=== PATIENT | female | born 1985 | race Caucasian/White ===

== ENCOUNTER → 2020-09-16 11:35 | Outpatient (BNVA) | payer OTHER, SELFPAY | PROVIDERS: Visit Provider Obstetrics & Gynecology ==

== ENCOUNTER → 2020-09-20 09:49 | Outpatient (BNVA) | payer OTHER, SELFPAY | PROVIDERS: Visit Provider Obstetrics & Gynecology ==

== ENCOUNTER 2020-10-03 06:06 | Day surgery (SDC) | payer OTHER, SELFPAY ==
--- NOTE | 2020-10-01 09:57 | HO.ANESPROP2 ---
Documented by User: Sun Brown 10/01/20 09:57 HPI - Anesthesia Eval Consult details Narrative: 35yo F for Hysteroscopic IUD Removal & IUD Insertion PMFSH Family History Family History Maternal Grandmother Lung cancer Father HTN (hypertension) Surgical History Surgical History Hx of section Social History Social History Alcohol intake: current Alcohol intake frequency: does not drink Smoking Status: Never smoker Use of substances other than those prescribed or required for medical reasons: No Are you DNR?: No Advance Directives: No Advance Directives Information Provided: Yes Gender identity: female Meds Allergies Allergy/AdvReac Type Severity Reaction Status Date / Time No Known Allergies Allergy Verified 09/20/20 09:56 [No Known Allergies*] Home Medications Medication Instructions Recorded Confirmed Last Taken Type dexmethylphenidate 20 mg 20 mg PO DAILY 09/16/20 Unknown History capsule,extended release [id number] Exam Exam Date and Time: October 01, 2020 0957 Assessment and Plan Assessment Anesthesia Assessment: Chart Reviewed Documented by User: Galen Masters 10/03/20 07:33 PMFSH Family History Family History Maternal Grandmother Lung cancer Father HTN (hypertension) Surgical History Surgical History Hx of section Social History Social History Alcohol intake: current Alcohol intake frequency: does not drink Smoking Status: Never smoker Use of substances other than those prescribed or required for medical reasons: No Are you DNR?: No Advance Directives: No Advance Directives Information Provided: Yes Gender identity: female Meds Allergies Allergy/AdvReac Type Severity Reaction Status Date / Time No Known Allergies Allergy Verified 09/20/20 09:56 [No Known Allergies*] Home Medications Medication Instructions Recorded Confirmed Last Taken Type dexmethylphenidate 20 mg 20 mg PO DAILY 09/16/20 Unknown History capsule,extended release [id number] Exam Airway Mallampati Class: II TM Dist: >3cm Neck ROM: Full
[2020-10-03 06:17] VITALS: BP 104/59; PULSE 63; RESP 16; TEMP 36.2; O2SAT 99; BMI 25.8
[2020-10-03 06:21] LABS: UPreg QC Valid YES; Urine Pregnancy NEGATIVE (NEGATIVE)
--- NOTE | 2020-10-03 07:07 | MHC.SHP ---
Pre-Procedural Eval Section A The patient is an INPATIENT: No Changes since office visit: No Cold of Flu in the past 2 weeks, No New Medical Problems, No Changes in Medication and No Patient answered all questions The History & Physical has been completed within 30 days and I have reviewed it.: Yes Section B Chief Complaint: IUD String Lost Allergies: Allergies Allergy/AdvReac Type Severity Reaction Status Date / Time No Known Allergies Allergy Verified 09/20/20 09:56 [No Known Allergies*] Plan I have reviewed the history and physical and performed a pertinent physical examination on my patient. No changes have occurred unless specified.
--- NOTE | 2020-10-03 07:07 | W.PM.OPN ---
Operative Note Operative Note Date of Service: 10/03/20 Narrative: Pre-Op Diagnoses: IUD strings missing, unwanted fertility Pre-Op Diagnoses: same as pre-op Production Line Solderer: none Procedures performed: hysteroscopic IUD removal, Josefa IUD insertion Josefa S/N [id number], Exp 04/2023, LOT [id number] Specimens: none Complications: none Disposition: PACU Ms. Rai is a 35 year old with missing IUD strings. She presents today for hysteroscopic IUD removal and Josefa insertion after US was done to confirm intrauterine placement and removal was attempted in her usual provider's office without success. Surgical Risks: The patient was informed of the risks and benefits of a hysteroscopy with dilation and curettage. Risks included but were not limited to bleeding, infection, injury to the vulva, vagina, or cervix, and uterine perforation with possible need for further surgery. The patient expressed understanding of the risks involved, all questions were answered, and the patient consented to the procedure. The patient was taken to the operating room where a time out was confirmed to confirm correct patient and correct procedure. Adequate []IV sedation/general anesthesia was established. The patient was then positioned on the operating table in the dorsal lithotomy position with her legs supported using stirrups. All pressure points were padded and a warm blanket was placed to maintain control of core body temperature. The patient was then prepped and draped in the usual sterile fashion. A straight catheter was inserted into the bladder and 100mL of urine was obtained. A bimanual exam was performed and the uterus was found to be approximately 8 cm size, anteverted. No adnexal masses were palpated. A bivalve speculum was then inserted into the vagina. The anterior lip of the cervix was visualized and grasped using a single tooth tenaculum. A cervical block was performed by injecting 6cc 0.5% bupivicaine each at 4 and 7o'clock, after first aspirating to confirm placement not in a blood vessel. The cervix was then adequately dilated using King dilators for the introduction of the hysteroscope. The hysteroscope was introduced under direct visualization using normal saline solution as the distending media. The hysteroscope was advanced and the Mirena IUD visualized. A hysteroscopic grasper was advanced and the IUD grasped. The hysteroscope was then removed with the grasper within the hysteroscope and the IUD in the grasper. The uterus was sounded to 7cm. The Josefa IUD was inserted in routine fashion. The strings were trimmed to 3cm. The tenaculum was removed from the anterior lip of the cervix and good hemostasis was noted. The speculum was removed from the vagina. The patient tolerated the procedure well. The single-tooth tenaculum was removed from the anterior lip of the cervix and hemostasis was also noted at the tenaculum puncture sites. The speculum was then removed from the vagina. At the end of the procedure, all needle, sponge, and instrument counts were noted to be correct x2. The patient was transferred to the recovery room in stable condition.
[2020-10-03 08:05] VITALS: BP 101/52; PULSE 65; RESP 16; TEMP 36.2; O2SAT 100
[2020-10-03 08:19] VITALS: BP 114/69; PULSE 59; RESP 16; TEMP 36.2; O2SAT 100
== END 2020-10-03 08:54 | disposition home or self-care (01) ==
PROVIDERS: Visit Provider Obstetrics & Gynecology
PROC: 0UJD8ZZ Inspection of Uterus and Cervix, Via Natural or Artificial Opening Endoscopic (ICD-10-PCS; CPT 58555; principal; 2020-10-03 07:30)
DX: T83.32XA Displacement of intrauterine contraceptive device, initial encounter (principal); Y76.1 Therapeutic (nonsurgical) and rehabilitative obstetric and gynecological devices associated with adverse incidents; Y92.9 Unspecified place or not applicable
CPT/HCPCS: 58562; 58300; 81025; J1100; J1885; J2250; J2405; J3010

== ENCOUNTER 2021-02-05 12:21 | Outpatient (REF) | payer OTHER, SELFPAY ==
[2021-02-05 13:24] LABS: COVID-19 Test Negative (Negative)
== END 2021-02-05 12:22 | disposition home or self-care (01) ==
LOC: HO.LAB 12:21
PROVIDERS: Visit Provider Internal Medicine
DX: Z20.822 Contact with and (suspected) exposure to COVID-19 (principal)
CPT/HCPCS: 36415; 87635; C9803

== ENCOUNTER 2021-10-03 16:16 | Outpatient (REF) | payer OTHER, SELFPAY ==
[2021-10-03 16:29] LABS: MANUAL DIFF FLAG NO
[2021-10-03 16:47] LABS: Basophils Percent Auto 0.5 % (0-2); Eosinophils Absolute Auto 0.1 X10*3/uL (0.0-0.4); Eosinophils Percent Auto 1.2 % (0-4); Hemoglobin 12.9 g/dl (12.0-16.0); Imm Gran Abs Auto 0.02 X10*3/uL (0.00-0.03); Imm Gran Pct Auto 0.3 % (0.0-0.4); Lymphocytes Absolute Auto 2.4 X10*3/uL (1.2-4.9); Lymphocytes Percent Auto 30.3 % (20-40); Mean Corpuscular HGB Conc 33.9 g/dl (31.0-35.0); Mean Corpuscular Hemoglobin 31.7 pg (27.0-33.0); Mean Corpuscular Volume 93.4 fL (80.0-98.0); Mean Platelet Volume 10.2 fL (9.4-12.3); Monocytes Absolute Auto 0.4 X10*3/uL (0.1-1.2); Monocytes Percent Auto 4.6 % (2-11); Neutrophils Absolute Auto 4.9 x10*3/uL (2.0-8.3); Neutrophils Percent Auto 63.1 % (45-73); Platelet Count 365 X10*3/uL (160-400); Red Blood Count 4.07 X10*6/uL (4.20-5.50); Red Cell Distribution Width 13.3 % (11.0-16.0); White Blood Count 7.8 X10*3/uL (4.8-10.8)
[2021-10-03 17:15] LABS: Alanine Aminotransferase 19 U/L (0-31); Albumin Level 4.1 g/dL (3.5-5.0); Alkaline Phosphatase 59 U/L (39-117); Anion Gap 10 (12-20); Aspartate Amino Transferase 17 U/L (5-31); Bilirubin Total 0.5 mg/dL (0.0-1.0); Blood Urea Nitrogen 10 mg/dL (9-16); Calcium 9.5 mg/dL (8.4-10.2); Carbon Dioxide 26 mmol/L (22-29); Chloride 105 mmol/L (96-108); Estimated Glomerular Filt Rate > 60; Glucose Random 92 mg/dL (60-115); Potassium 4.4 mmol/L (3.3-5.1); Sodium 137 mmol/L (135-145); Total Protein 7.5 g/dL (6.5-8.0)
[2021-10-03 17:36] LABS: Free T4 (Free Thyroxine) 1.09 ng/dL (0.71-1.85); Thyroid Stimulating Hormone 2.16 uIU/mL (0.32-4.0); Vitamin D 25-OH Total 16.6 ng/mL (>30)
[2021-10-03 17:41] LABS: Vitamin B12 377 pg/mL (200-900)
[2021-10-03 17:42] LABS: Estimated Average Glucose 97 mg/dL
== END 2021-10-03 16:17 | disposition home or self-care (01) ==
LOC: HO.LAB 16:16
PROVIDERS: Visit Provider Nurse Practitioner Psychiatric/Mental Health
DX: R53.83 Other fatigue (principal)
CPT/HCPCS: 36415; 80053; 82306; 82607; 83036; 84439; 84443; 85025

== ENCOUNTER 2022-09-03 10:33 | Outpatient (REF) | payer OTHER, SELFPAY ==
[2022-09-03 10:53] LABS: MANUAL DIFF FLAG NO
[2022-09-03 11:29] LABS: Basophils Percent Auto 0.2 % (0-2); Eosinophils Absolute Auto 0.1 X10*3/uL (0.0-0.4); Eosinophils Percent Auto 0.8 % (0-4); Hematocrit 37.9 % (37.0-47.0); Hemoglobin 12.7 g/dl (12.0-16.0); Imm Gran Abs Auto 0.02 X10*3/uL (0.00-0.03); Imm Gran Pct Auto 0.3 % (0.0-0.4); Lymphocytes Absolute Auto 1.6 X10*3/uL (1.2-4.9); Lymphocytes Percent Auto 24.7 % (20-40); Mean Corpuscular HGB Conc 33.5 g/dl (31.0-35.0); Mean Corpuscular Hemoglobin 30.1 pg (27.0-33.0); Mean Corpuscular Volume 89.8 fL (80.0-98.0); Mean Platelet Volume 10.6 fL (9.4-12.3); Monocytes Absolute Auto 0.3 X10*3/uL (0.1-1.2); Monocytes Percent Auto 4.7 % (2-11); Neutrophils Absolute Auto 4.6 x10*3/uL (2.0-8.3); Neutrophils Percent Auto 69.3 % (45-73); Platelet Count 330 X10*3/uL (160-400); Red Blood Count 4.22 X10*6/uL (4.20-5.50); Red Cell Distribution Width 13.8 % (11.0-16.0); White Blood Count 6.7 X10*3/uL (4.8-10.8)
[2022-09-03 11:35] LABS: Estimated Average Glucose 103 mg/dL; Hemoglobin A1c % 5.2 %
[2022-09-03 12:04] LABS: Alanine Aminotransferase 26 U/L (0-31); Albumin Level 4.2 g/dL (3.5-5.0); Alkaline Phosphatase 73 U/L (39-117); Anion Gap 13 (12-20); Aspartate Amino Transferase 22 U/L (5-31); Bilirubin Total 0.7 mg/dL (0.0-1.0); Blood Urea Nitrogen 10 mg/dL (9-16); C Reactive Protein < 0.10 mg/dL (< or = 0.50); Calcium 9.4 mg/dL (8.4-10.2); Carbon Dioxide 22 mmol/L (22-29); Chloride 108 mmol/L (96-108); Cholesterol 160 mg/dL; Estimated Glomerular Filt Rate > 60; Glucose Random 95 mg/dL (60-115); HDL Cholesterol 69 mg/dL; LDL Cholesterol Calculated 78 mg/dl; Potassium 4.5 mmol/L (3.3-5.1); Sodium 138 mmol/L (135-145); Total Protein 7.3 g/dL (6.5-8.0); Triglycerides 68 mg/dL
[2022-09-03 12:37] LABS: Folate 19.2 ng/mL (> or = 4.0); Thyroid Stimulating Hormone 1.84 uIU/mL (0.32-4.0); Vitamin B12 733 pg/mL (200-900); Vitamin D 25-OH Total 27.4 ng/mL (>30)
== END 2022-09-03 10:34 | disposition home or self-care (01) ==
LOC: HO.LAB 10:33
PROVIDERS: Visit Provider Psychiatry & Neurology Geriatric Psychiatry
DX: Z13.89 Encounter for screening for other disorder (principal)
CPT/HCPCS: 36415; 80053; 80061; 82306; 82607; 82746; 83036; 84439; 84443; 85025; 86140

== ENCOUNTER → 2023-10-13 14:47 | Outpatient (REF) | payer OTHER, SELFPAY ==
[2023-10-13 19:13] LABS: Anion Gap 14 (12-20); Blood Urea Nitrogen 11 mg/dL (9-16); Calcium 9.6 mg/dL (8.4-10.2); Carbon Dioxide 23 mmol/L (22-29); Chloride 106 mmol/L (96-108); Estimated Glomerular Filt Rate > 60; Glucose Random 84 mg/dL (60-115); Magnesium 2.1 mg/dL (1.6-2.6); Potassium 3.7 mmol/L (3.3-5.1); Sodium 139 mmol/L (135-145)
[2023-10-13 19:19] LABS: Free T4 (Free Thyroxine) 0.93 ng/dL (0.71-1.85); Thyroid Stimulating Hormone 1.58 uIU/mL (0.32-4.0)
== END ==
LOC: HO.CARD 14:47
PROVIDERS: Visit Provider Physician Assistant
DX: R00.1 Bradycardia, unspecified (principal)
CPT/HCPCS: 36415; 80048; 83735; 84439; 84443

== ENCOUNTER 2025-04-30 12:59 | Outpatient (REF) | payer OTHER, SELFPAY ==
[2025-04-30 13:18] LABS: MANUAL DIFF FLAG NO
[2025-04-30 14:24] LABS: Hematocrit 39.4 % (37.0-47.0); Hemoglobin 13.0 g/dl (12.0-16.0); Imm Gran Abs Auto 0.02 X10*3/uL (0.00-0.03); Imm Gran Pct Auto 0.3 % (0.0-0.4); Lymphocytes Absolute Auto 1.9 X10*3/uL (1.2-4.9); Mean Corpuscular HGB Conc 33.0 g/dl (31.0-35.0); Mean Corpuscular Hemoglobin 30.9 pg (27.0-33.0); Mean Corpuscular Volume 93.6 fL (80.0-98.0); NRBC Abs Auto 0.000 X10*3/uL (0.0-0.012); NRBC Pct Auto 0.0 /100WBC (0.0-0.2); Platelet Count 389 X10*3/uL (160-400); Red Blood Count 4.21 X10*6/uL (4.20-5.50); White Blood Count 6.9 X10*3/uL (4.8-10.8)
[2025-04-30 15:02] LABS: Erythrocyte Sedimentation Rate 7 MM/HR (0-20)
[2025-04-30 17:20] LABS: Alanine Aminotransferase 30 U/L (0-31); Albumin Level 4.7 g/dL (3.5-5.0); Alkaline Phosphatase 74 U/L (39-117); Anion Gap 11 (12-20); Aspartate Amino Transferase 29 U/L (5-31); Blood Urea Nitrogen 9 mg/dL (9-16); Calcium 9.2 mg/dL (8.4-10.2); Carbon Dioxide 25 mmol/L (22-29); Chloride 107 mmol/L (96-108); Cholesterol 143 mg/dL (<200); Estimated Glomerular Filt Rate > 60; HDL Cholesterol 78 mg/dL (>40); Potassium 3.6 mmol/L (3.3-5.1); Sodium 139 mmol/L (135-145); Total Protein 8.1 g/dL (6.5-8.0); Triglycerides 52 mg/dL (<150)
[2025-04-30 18:16] LABS: Vitamin B12 359 pg/mL (200-900)
--- OUTSIDE RECORDS SUMMARY | 2025-04-30 21:46 | XMS_ITS | Clinical Summary ---
Author Organization [facility] Address [address] [place] [address] Care Team Providers Care Pastry Sous Chef Name Role Phone Pcp, No Primary Care Provider Unavailabl e Medications * This document contains information received from the source organization and may not represent a complete record from that organization. No known medications Immunizations Immunization Administration Dates Next Due Covid-19 MRNA Vaccine - Pfizer 12+ (Purple Cap) 06/03/2020,05/13/2020 Social History Tobacco Use Types Packs/Day Years Used Date Smoking Tobacco: Never Assessed Comments Unknown Sex and Gender Information Value Date Recorded Sex Assigned at Not on file Legal Sex Female 9:26 AM EDT Gender Identity Not on file Sexual Orientation Not on file Plan of Treatment Health Maintenance Due Date Last Done Comments Hepatitis C Virus Screening 1983 HIV Screening 08/27/1996 DTaP/Tdap/Td Vaccines (1 - Tdap) 08/27/2002 Hepatitis B Vaccines (1 of 3 - 19+ 3-dose series) 08/27/2002 COVID-19 Vaccine (3 - 2024-2 6 season) 2025 06/03/2020, 05/13/2020 HPV Vaccines (No Doses Required) Completed Pneumococcal Vaccine: Pediatric (0-5 Years) and At-Risk Patients (6 to 49 Years) Aged Out No longer eligible b ased on patient's age to complete this topic Care Teams Pastry Sous Chef Relationship Specialty Start Date End Date Pcp, No [address] [place] [address] PCP - General 11/01/18
[2025-05-01 14:53] LABS: SM/Ribonucleoprotein Ab <1.0 NEG AI (<1.0 NEG); Smith Protein <1.0 NEG AI (<1.0 NEG)
[2025-05-01 22:32] LABS: Thyroglobulin Antibodies <1 IU/mL (< or = 1)
[2025-05-02 21:43] LABS: ANA Titer 3 1:40 titer; Anti Nuclear Antibody Pattern Nuclear, Speckled; Anti Nuclear Antibody Screen POSITIVE (NEGATIVE); Anti Nuclear Antibody Titer 1:40 titer
[2025-05-03 22:48] LABS: Beta-2 Glycoprotein I Ab IgG <2.0 U/mL (<20.0); Beta-2 Glycoprotein I Ab IgM 6.1 U/mL (<20.0); Beta-2 Glycoprotein I Ab, IgA 2.8 U/mL (<20.0); Phosphatidylserine PT IgM <9 U (<=30)
== END 2025-04-30 13:00 | disposition home or self-care (01) ==
LOC: HO.LAB 12:59
PROVIDERS: Visit Provider Nurse Practitioner Family
DX: Z01.84 Encounter for antibody response examination (principal); Z13.6 Encounter for screening for cardiovascular disorders; Z13.1 Encounter for screening for diabetes mellitus; R21 Rash and other nonspecific skin eruption
CPT/HCPCS: 36415; 80053; 80061; 82607; 83036; 83516; 84443; 85025; 85652; 86038; 86039; 86140; 86146; 86147; 86225; 86235; 86376; 86431; 86800